=== PATIENT | male | born 1995 | race Caucasian/White ===

== ENCOUNTER 2017-09-18 23:28 | Emergency (ER) | payer BC ==
[2017-09-18 23:36] VITALS: TEMP 98.4
[2017-09-18] MEDS ORDERED: FAMOTIDINE 20 MG TAB PO ONE (23:44)
[2017-09-18] MEDS ORDERED: diphenhydrAMINE 25 MG CAP PO ONE (23:45)
[2017-09-18] MEDS ORDERED: DEXAMETHASONE 4 MG TAB PO ONE (23:45)
[2017-09-18 23:52] VITALS: RESP 16; O2SAT 94
[2017-09-19] MEDS ORDERED: IPRATROPIUM/ALBUTEROL 3 ML DEYVIAL ONE (00:28)
[2017-09-19] MEDS ORDERED: IPRATROPIUM/ALBUTEROL 3 ML DEYVIAL IH ONE (00:30)
--- NOTE | 2017-09-19 00:40 | EDPHY ---
H & P Stated Complaint: allergic reaction Time Seen by Provider: 09/18/17 23:38 HPI/ROS: HPI The patient presents with concern for allergic reaction. About 30 min prior to arrival he had an energy bar that had peanuts in it. He does have a peanut allergy, but did not realize the bar had peanuts in it. He began to develop an itchy sensation in his torso, his lips began to tingle and his throat felt like it was swelling. He had mild shortness of breath. He has prior similar history. He does not have an EpiPen. He has not taken any medications. He has not had any vomiting or dizziness. REVIEW OF SYSTEMS Constitutional: No fever, no chills. Eyes: No discharge. ENT: No sore throat. Cardiovascular: No chest pain, no palpitations. Respiratory: No cough, no shortness of breath. Gastrointestinal: No abdominal pain, no vomiting. Genitourinary: No hematuria. Musculoskeletal: No back pain. Skin: No rashes. Neurological: No headache. PMHx: Peanut allergy Soc Hx: Lives with family PHYSICAL General Appearance: Alert, no distress Eyes: Pupils equal and round no pallor or injection ENT, Mouth: Mucous membranes moist, uvular edema is present Respiratory: There are no retractions, lungs are clear to auscultation Cardiovascular: Tachycardic with regular rhythm Gastrointestinal: Abdomen is soft and non-tender, no masses, bowel sounds normal Neurological: A&O, moves all extremities Skin: Warm and dry, facial flushing is present Musculoskeletal: Neck is supple non tender Extremities: symmetrical, full range of motion Psychiatric: Patient is oriented X 3, there is no agitation Source: Patient Exam Limitations: No limitations - Medical/Surgical History Hx Asthma: No Hx Chronic Respiratory Disease: No Hx Diabetes: No Hx Cardiac Disease: No Hx Renal Disease: No Hx Cirrhosis: No Hx Alcoholism: No Hx HIV/AIDS: No Hx Splenectomy or Spleen Trauma: No Other PMH: schizophrenia, - Social History Smoking Status: Current some day smoker Constitutional: Initial Vital Signs Temperature (C) 36.9 C 09/18/17 23:31 Heart Rate 129 H 09/18/17 23:31 Respiratory Rate 18 09/18/17 23:31 Blood Pressure 117/103 H 09/18/17 23:31 O2 Sat (%) 93 09/18/17 23:31 O2 Delivery Mode Room Air Allergies/Adverse Reactions: amoxicillin Allergy (Verified 09/18/17 23:34) peanut Allergy (Verified 09/18/17 23:34) Home Medications: Medication Instructions Recorded EPINEPHrine [Epipen 0.3 MG] 0.3 mg IM ONCE #2 syr 09/19/17 Medical Decision Making Differential Diagnosis: 22-year-old man with known peanut allergy ate an energy bar about 30 min prior to arrival and developed puffy lips, itching throughout his body, sensation that his throat was tight. He has a history of similar reactions and has had to use epinephrine before. I saw the patient immediately when he arrived. Plan for Benadryl, Pepcid, Decadron. 12:30 a.m.- Patient's rash got worse he has urticaria throughout his abdomen and back now wears before he had sparse urticaria. Plan for treatment with epinephrine. 2:00 a.m.- Patient is feeling completely better. On exam, his hives have completely resolved and he has no uvular edema. He is suitable for discharge at this time. I will send him home with EpiPen prescriptions and have advised him to take Benadryl until he is feeling completely better. He is in agreement with this plan. Critical Care Time: CRITICAL CARE Critical care time spent by me, Dr. Bird, exclusively with this patient was 20 minutes, exclusive of PA time and exclusive of procedures. The organ system at risk was cardiac and I gave epinephrine to prevent worsening of the patients condition. - Data Points Medications Given: Discontinued Medications Albuterol/Ipratropium (Duoneb) 3 ml IH EDNOW ONE Stop: 09/19/17 00:31 Last Admin: 09/19/17 00:31 Dose: 3 ml Dexamethasone (Decadron) 10 mg PO EDNOW ONE Stop: 09/18/17 23:46 Last Admin: 09/18/17 23:51 Dose: 10 mg Diphenhydramine HCl (Benadryl) 50 mg PO EDNOW ONE Stop: 09/18/17 23:46 Last Admin: 09/18/17 23:50 Dose: 50 mg Epinephrine HCl (Epinephrine) 0.3 mg IM EDNOW ONE Stop: 09/19/17 00:38 Last Admin: 09/19/17 00:40 Dose: 0.3 mg Famotidine (Pepcid) 40 mg PO EDNOW ONE Stop: 09/18/17 23:45 Last Admin: 09/18/17 23:49 Dose: 40 mg Departure - Departure Disposition: Home, Routine, Self-Care Clinical Impression: Anaphylactic reaction Condition: Good Instructions: Food Allergy (ED), Anaphylaxis (ED) Additional Instructions: I recommend you take Benadryl 25 mg every 6 hr as needed for your allergic reaction. If it becomes severe, I recommend you use the EpiPen we have prescribed. Referrals: DR MEHREEN [Other] - As per Instructions Prescriptions: EPINEPHrine [Epipen 0.3 MG] 0.3 mg IM ONCE #2 syr
[2017-09-19 01:39] VITALS: BP 125/80; PULSE 112
== END 2017-09-19 02:24 | disposition home or self-care (01) ==
DX: T78.01XA Anaphylactic reaction due to peanuts, initial encounter (principal); F17.200 Nicotine dependence, unspecified, uncomplicated
CPT/HCPCS: J0171